=== PATIENT | male | born 1985 | race Caucasian/White ===

== ENCOUNTER 2017-08-07 10:44 | Emergency (ER) | payer BC ==
[2017-08-07 11:04] VITALS: BP 138/88
--- NOTE | 2017-08-07 11:47 | EDM.PDOC ---
ED HPI GENERAL MEDICAL PROBLEM - General Chief Complaint: Cardiovascular Problem Stated Complaint: LIGHTHEADED,DIZZINESS Time Seen by Provider: 08/07/17 11:30 Source of Information: Reports: Patient, Family, RN Notes Reviewed History Limitations: Reports: No Limitations - History of Present Illness INITIAL COMMENTS - FREE TEXT/NARRATIVE: 31-year-old gentleman presents emergency department day complaint of flushing, dizziness and generalized muscle aches, he was recently diagnosed with anaplasmosis started on doxycycline he's taken a total of 6 tablets over the last 72 hours denies any fevers Treatments ENGINEERING DEPARTMENT CHAIR: Reports: Other (see below) Other Treatments ENGINEERING DEPARTMENT CHAIR: Doxycycline - Related Data Allergies Allergy/AdvReac Type Severity Reaction Status Date / Time cefaclor [From Ceclor] Allergy Rash Verified 08/07/17 11:06 Penicillins Allergy Rash Verified 08/07/17 11:06 Home Meds: Home Meds Doxycycline [Vibramycin] 100 mg PO BID 08/07/17 [History] Ondansetron [Zofran ODT] 4 mg PO Q6H PRN #10 tab.dis 08/07/17 [Rx] Past Medical History - Past Health History Medical/Surgical History: Denies Medical/Surgical History Social & Family History - Tobacco Use Smoking Status *Q: Never Smoker - Caffeine Use Caffeine Use: Reports: Coffee - Recreational Drug Use Recreational Drug Use: No ED ROS GENERAL - Review of Systems Review Of Systems: See Below Constitutional: Reports: Other (Body aches, flushing). Denies: Fever, Chills HEENT: Reports: No Symptoms Respiratory: Reports: Cough Cardiovascular: Reports: No Symptoms GI/Abdominal: Reports: No Symptoms : Reports: No Symptoms Musculoskeletal: Reports: Muscle Stiffness Neurological: Reports: Dizziness ED EXAM, GENERAL - Physical Exam Exam: See Below Exam Limited By: No Limitations General Appearance: Alert, WD/WN, Other (Ill-appearing) Neck: Normal Inspection Respiratory/Chest: No Accessory Muscle Use, Chest Non-Tender, Wheezing (Right upper lobe) Cardiovascular: Regular Rate, Rhythm, No Murmur GI/Abdominal: Soft, Non-Tender Back Exam: Normal Inspection. No: CVA Tenderness (R), CVA Tenderness (L) Extremities: No Pedal Edema Neurological: Alert, Oriented Course - Vital Signs Last Recorded V/S: Last Vital Signs Temp 97.2 F 08/07/17 11:07 Pulse 81 08/07/17 11:07 Resp 16 08/07/17 11:07 BP 138/88 08/07/17 11:07 Pulse Ox 98 08/07/17 11:07 - Orders/Labs/Meds Labs: Laboratory Tests 08/07/17 08/07/17 08/07/17 Range/Units 11:52 11:52 11:52 WBC 12.0 H (4.5-11.0) K/uL RBC 5.18 (4.30-5.90) M/uL Hgb 14.9 (12.0-15.0) g/dL Hct 43.0 (40.0-54.0) % MCV 83 (80-98) fL MCH 29 (27-31) pg MCHC 35 (32-36) % Plt Count 254 (150-400) K/uL Neut % (Auto) 76 H (36-66) % Lymph % (Auto) 13 L (24-44) % Upson % (Auto) 7 H (2-6) % Eos % (Auto) 3 (2-4) % Baso % (Auto) 1 (0-1) % Sodium 137 L (140-148) mmol/L Potassium 3.5 L (3.6-5.2) mmol/L Chloride 98 L (100-108) mmol/L Carbon Dioxide 28 (21-32) mmol/L Anion Gap 14.5 H (5.0-14.0) mmol/L BUN 12 (7-18) mg/dL Creatinine 1.0 (0.8-1.3) mg/dL Est Cr Clr Drug Dosing 115.04 mL/min Estimated GFR (MDRD) > 60 (>60) Glucose 110 H (74-106) mg/dL Calcium 8.5 (8.5-10.1) mg/dL Total Bilirubin 0.3 (0.2-1.0) mg/dL AST 21 (15-37) U/L ALT 38 (12-78) U/L Alkaline Phosphatase 79 (46-116) U/L Creatine Kinase 119 (39-308) U/L Total Protein 7.1 (6.4-8.2) g/dL Albumin 3.5 (3.4-5.0) g/dL Globulin 3.6 H (2.3-3.5) g/dL Albumin/Globulin Ratio 1.0 L (1.2-2.2) Meds: Medications Discontinued Medications Generic Name Dose Route Start Last Admin Trade Name Freq PRN Reason Stop Dose Admin Ondansetron HCl 4 mg 08/07/17 13:04 08/07/17 13:08 Zofran Odt PO 08/07/17 13:05 4 mg ONETIME ONE Administration Departure - Departure Time of Disposition: 13:51 Disposition: Home, Self-Care 01 Condition: Good Clinical Impression: Jarisch Herxheimer reaction Prescriptions: Ondansetron [Zofran ODT] 4 mg PO Q6H PRN #10 tab.dis PRN Reason: Nausea Referrals: PCP,None [Primary Care Provider] - Forms: ED Department Discharge Additional Instructions: Continue full course of antibiotics, Please followup with your primary care provider in 5-7 days if not better, please call return to the emergency department with worsening of symptoms. - Assessment/Plan Plan: Assessment Acuity = acute Site and laterality = probable reaction to doxycycline and recent treatment of anaplasmosis Etiology = unclear etiology Manifestations = flushing, nausea Location of injury = Home Lab values = WBC elevated at 12.0 consistent with leukocytosis, potassium low at 3.5 consistent hypokalemia, chest x-ray shows of right upper lobe infiltrate per radiology currently on doxycycline Plan He had good improvement with Zofran for his symptoms recommend he continue the doxycycline he has a 14 day course, follow-up with his primary care in 5-7 days if no improvement Patient was in agreement with the plan all questions were answered, they were instructed to return to the emergency department or call for worsening symptoms. This note was dictated using [employer] voice recognition software please call with any questions.
[2017-08-07] MEDS ORDERED: Ondansetron 4 MG Tab.DIS PO ONE (13:04)
--- NOTE | 2017-08-07 13:25 | CR ---
Chest 2V HISTORY: Cough COMPARISON: None FINDINGS: Faint infiltrate in the right upper lobe. Left lung is clear. Cardiac size and pulmonary ve ssels normal. No effusions. Impression: Right upper lobe infiltrate.
== END 2017-08-07 14:05 | disposition home or self-care (01) ==
LOC: JP.ED 10:44
DX: R68.89 Other general symptoms and signs (principal); R23.2 Flushing; R11.0 Nausea; Z88.0 Allergy status to penicillin; Z88.1 Allergy status to other antibiotic agents
CPT/HCPCS: 36415; 71020; 80053; 82550; 85025; 99284; A9270